=== PATIENT | female | born 2000 | race Caucasian/White ===

== ENCOUNTER 2023-09-15 13:50 | Outpatient (REF) | payer BC, SELFPAY ==
[2023-09-15 14:04] LABS: MANUAL DIFF FLAG NO
[2023-09-15 14:34] LABS: Basophils Absolute Auto 0.1 X10*3/uL (0.0-0.2); Basophils Percent Auto 0.9 % (0-2); Eosinophils Absolute Auto 0.4 X10*3/uL (0.0-0.4); Eosinophils Percent Auto 5.1 % (0-4); Hematocrit 43.5 % (37.0-47.0); Imm Gran Abs Auto 0.03 X10*3/uL (0.00-0.03); Imm Gran Pct Auto 0.4 % (0.0-0.4); Lymphocytes Absolute Auto 1.9 X10*3/uL (1.2-4.9); Lymphocytes Percent Auto 24.1 % (20-40); Mean Corpuscular HGB Conc 32.2 g/dl (31.0-35.0); Mean Corpuscular Hemoglobin 27.9 pg (27.0-33.0); Mean Corpuscular Volume 86.8 fL (80.0-98.0); Mean Platelet Volume 10.2 fL (9.4-12.3); Monocytes Absolute Auto 0.3 X10*3/uL (0.1-1.2); Monocytes Percent Auto 4.2 % (2-11); Neutrophils Percent Auto 65.3 % (45-73); Platelet Count 226 X10*3/uL (160-400); Red Blood Count 5.01 X10*6/uL (4.20-5.50); Red Cell Distribution Width 12.3 % (11.0-16.0); White Blood Count 7.7 X10*3/uL (4.8-10.8)
[2023-09-15 15:11] LABS: UPreg QC Valid YES; Urine Pregnancy NEGATIVE (NEGATIVE)
[2023-09-15 15:17] LABS: Alanine Aminotransferase 17 U/L (0-31); Albumin Level 4.4 g/dL (3.5-5.0); Alkaline Phosphatase 48 U/L (39-117); Anion Gap 10 (12-20); Aspartate Amino Transferase 14 U/L (5-31); Bilirubin Total 0.3 mg/dL (0.0-1.0); Blood Urea Nitrogen 9 mg/dL (9-16); Calcium 9.2 mg/dL (8.4-10.2); Carbon Dioxide 28 mmol/L (22-29); Chloride 106 mmol/L (96-108); Estimated Glomerular Filt Rate > 60; Glucose Random 113 mg/dL (60-115); Potassium 3.6 mmol/L (3.3-5.1); Sodium 140 mmol/L (135-145)
[2023-09-15 15:30] LABS: Vitamin B12 688 pg/mL (200-900)
[2023-09-15 15:35] LABS: Free T4 (Free Thyroxine) 1.06 ng/dL (0.71-1.85); Vitamin D 25-OH Total 29.2 ng/mL (>30)
--- NOTE | 2023-09-15 18:16 | HO.PS.ADMBH ---
HPI Date of Service: 09/15/23 Chief Complaint: F32.2 Sources of Information: patient interviewed, chart reviewed and crisis/core team assessment reviewed HPI Narrative: Patient is a 23 year old female with a long history of depression who was referred to [facility] by her therapist Sydnie Petersen. This is her first PHP admission, although was once referred to [facility] in the past but quit before completing her first day. She reports a history of dropping out of school due to depression and anxiety, and is currently struggling to get to work regularly due to the severity of her depression which is negatively impacting her ability to function. She reports struggling with depression since age 14, and reportedly her depression has been persistent since then aside from some brief periods of recovery in her mood. She reports currently feeling her depression is the worst it has been since high school. There was a period of some month last summer when she was not feeling depressed. She had come off her medication during this time and was able to maintain a euthymic mood for some time before the depression returned. It has been getting steadily worse since . She was started back on Effexor 1.5 months ago but unlike last time she was on it, she is not finding any relief thus far. Past Psychiatric History: No hx of IP hospitalization, PHP or detox admissions Per initial assessment - engaged in group therapy in the past Denies hx of suicide attempts Hx of SIB No hx of aggression Was diagnosed with ADHD in adolescence Outpatient providers: PCP - Dr. Bertha Padilla ([facility]) Psychiatrist - David Fairbanks MD Therapist - Sydnie Goodrich [facility], since early 2022 Previous trials: Prozac, Zoloft, Wellbutrin (none were effective, denies any adverse effects) also trazodone, and hydroxyzine were only modestly effective. Ritalin, Adderall, had been on venlafaxine in the past (as high as 37.5 mg) CURRENT MEDICATIONS: venlafaxine 25 mg (1/2 tablet) venlafaxine 37.5 mg (1/2 tablet) [facility] Medical History (Updated 09/16/23 @ 06:53 by Gina Lin MD) No known health problems Narrative: Healthy No chronic conditions or significant illnesses No surgical history No hx of seizures No hx of concussions or TBI Nulligravid G0 recently underwent STD testing in 2022, no findings Not currently sexually active LMP: almost 1 month ago Ht: 5'3 Wt: 108 lbs ALL: NKDA Narrative: None Family History: depression, anxiety Social History: Shares an apartment with a roommate Currently employed dropped out of in 11th grade due to depression, obtained a GED Substance History: Alcohol use: occasional use, socially, 0-2 x/week, in moderation Cannabis use: regularly, daily basis for years Denies other substance use Trauma History: Denies Diagnostics Labs 09/15/23 14:03 09/15/23 14:03 Labs: Laboratory Results - last 48 hr 09/15/23 09/15/23 14:03 14:05 WBC 7.7 RBC 5.01 Hgb 14.0 Hct 43.5 MCV 86.8 MCH 27.9 MCHC 32.2 RDW 12.3 Plt Count 226 MPV 10.2 Immature Gran % (Auto) 0.4 Neut % (Auto) 65.3 Lymph % (Auto) 24.1 Ellis % (Auto) 4.2 Eos % (Auto) 5.1 H Baso % (Auto) 0.9 Lymph # (Auto) 1.9 Ellis # (Auto) 0.3 Eos # (Auto) 0.4 Baso # (Auto) 0.1 Abs Immat Gran (auto) 0.03 Absolute Neuts (auto) 5.0 Absolute Nucleated RBC 0.000 Nucleated RBC % (auto) 0.0 Sodium 140 Potassium 3.6 Chloride 106 Carbon Dioxide 28 Anion Gap 10 L BUN 9 Creatinine 0.83 Estim Creat Clear Calc Not Reportable Estimated GFR > 60 Random Glucose 113 Calcium 9.2 Total Bilirubin 0.3 AST 14 ALT 17 Alkaline Phosphatase 48 Total Protein 7.0 Albumin 4.4 Vitamin B12 688 25-OH Vitamin D Total 29.2 L TSH 0.90 Free T4 1.06 Urine Test NEGATIVE Meds/Allergies Meds Home Medications Medication Instructions Recorded Confirmed Type venlafaxine 25 mg tablet 12.5 mg PO DAILY 09/15/23 09/15/23 History venlafaxine 37.5 mg tablet 18.75 mg PO BEDTIME 09/15/23 09/15/23 History Allergies Allergies Allergy/AdvReac Type Severity Reaction Status Date / Time No Known Allergies Allergy Verified 09/15/23 10:47 Mental Status Exam Mental Status Exam Narrative: Alert, oriented, in no acute distress. Calm, cooperative, engaged. No psychomotor agitation or neurovegetative retardation. Eye contact maintained. Mood depressed, affect constricted. Speech normal. Thought process linear, coherent. Thought content related to stressors, transient hopelessness, denies current SI or HI, although admits recently experienced some passive SI. No paranoia or delusional content elicited. No evidence of psychosis. Insight and judgment impaired. Assessment & Plan Assessment & Plan (1) Major depressive disorder, recurrent severe without psychotic features: Status: Acute Code(s): F33.2 - Major depressive disorder, recurrent severe without psychotic features (2) Other specified anxiety disorders: Status: Acute Code(s): F41.8 - Other specified anxiety disorders (3) ADHD (attention deficit hyperactivity disorder): Status: Acute Qualifiers: Attention deficit-hyperactivity disorder type: predominantly inattentive Qualified Code(s): F90.0 - Attention-deficit hyperactivity disorder, predominantly inattentive type Code(s): F90.9 - Attention-deficit hyperactivity disorder, unspecified type (4) Cannabis abuse: Status: Acute Code(s): F12.10 - Cannabis abuse, uncomplicated Plan Admit to PHP increase dose of venlafaxine to 37.5 mg ER qd (from 31.25 mg qd) will hold IR dose engaged patient in discussion regarding ongoing substance use order routine lab work [facility] reviewed continue to monitor as per protocol Patient educated on: diagnosis, medication risk/benefits and substance abuse Informed Consent: understands Reason for continued partial hosp. stay Substantial Risk for: inability to function, rapid decompensation and med/psych decompensation Certification I certify that partial hospital treatment is medically necessary due to the symptoms and problems resulting from the patient's mental illness and the failure to treat the patient at the partial hospital level of care would likely result in the patient requiring inpatient psychiatric care which could not be prevented at a less intensive level of care. Time Spent With Patient Time: Total time managing care of this patient today __60__ minutes.
== END 2023-09-15 13:51 | disposition home or self-care (01) ==
LOC: HO.LAB 13:50
PROVIDERS: PCP Family Medicine; Visit Provider Psychiatry & Neurology Psychiatry
DX: F33.2 Major depressive disorder, recurrent severe without psychotic features (principal); F41.8 Other specified anxiety disorders; F90.0 Attention-deficit hyperactivity disorder, predominantly inattentive type; F12.10 Cannabis abuse, uncomplicated
CPT/HCPCS: 36415; 80053; 81025; 82306; 82607; 84439; 84443; 85025

== ENCOUNTER → 2023-09-15 13:50 | Outpatient (BNV) | payer BC, SELFPAY | PROVIDERS: PCP Family Medicine; Visit Provider Psychiatry & Neurology Psychiatry | DX: F33.2 Major depressive disorder, recurrent severe without psychotic features (principal); F41.8 Other specified anxiety disorders; F90.0 Attention-deficit hyperactivity disorder, predominantly inattentive type; F12.10 Cannabis abuse, uncomplicated | CPT/HCPCS: 90792 ==

== ENCOUNTER → 2023-09-23 11:30 | Outpatient (BNV) | payer BC, SELFPAY | PROVIDERS: Visit Provider Psychiatry & Neurology Psychiatry | DX: F33.2 Major depressive disorder, recurrent severe without psychotic features (principal); F12.10 Cannabis abuse, uncomplicated; F90.0 Attention-deficit hyperactivity disorder, predominantly inattentive type | CPT/HCPCS: 90832; 99213; 99499 ==

== ENCOUNTER 2023-09-30 10:00 | Outpatient (RCR) | payer BC, SELFPAY ==
[2023-09-15 10:49] VITALS: BP 99/83; PULSE 80; TEMP 36.8
[2023-09-15 10:52] VITALS: BMI 19.1
--- NOTE | 2023-09-15 11:39 | PC.ADMIT ---
Patient is a 23 year old female who was referred to [facility] by her therapist d/t increased depression and anxiety sxs. Patient also reports she self harmed by cutting her upper R leg superficially last week. Reports she has not self harmed prior to this in a few years. Feeling overwhelmed by her job. Stated she has been calling out of work d/t depressive and anxious symptoms. She lives with a roommate and reports she is not having any financial issues at this time. Patient is using Cannabis daily throughout the day and is looking to cut down her use. She was given written and verbal education about Marijuana use disorder. Patient is alert and oriented x4. Calm and cooperative. Denied SI currently. Patient stated, In the past few weeks yes feels more intrusive then a real belief or want. Patient denied any plan or intent. Reports she was having some passive thoughts. Medications reconciled with patient and patient's pharmacy. She reports she is currently taking medications as prescribed.
--- NOTE | 2023-09-15 17:16 | HO.PHP ---
Pt's case has been opened and reviewed in team.
--- NOTE | 2023-09-23 21:51 | HO.PHPPROGNO ---
Subjective Subjective Date of Service: 09/23/23 Reason For Visit: ADD,ADHD Interim History: Patient seen for follow-up. No major changes, still feels very depressed. She did not tolerate the increase in venlafaxine which caused her to feel nauseous and overstimulated. She returned to the half dose, which is where she was on admission, and symptoms resolved. She has had previous trials of Prozac and Zoloft and Wellbutrin without any improvement. Only Effexor had been helpful in the past, but this time is not helping at the dose it did before, and clearly she was unable to tolerate the bump up by 12.5 mg. She is agreeable to switching to a different antidepressant, and given her history of benefitting from an SNRI, we will trial duloxetine. SHe denies any suicidal ideation last time was on admission. Last time she engaged in SIB was weeks ago. She reports plans for the weekend - meeting up with a friend and seeing a show. She complains of feeling less focused and motivated. It's been hard to stay engaged with things. Still endorsing low energy and anhedonia. Sleep and appetite are intact. Medication Compliance: Yes Side effects from medications: No Attending Groups: Yes Review of Systems Acute medical concerns: No Mental Status Exam Mental Status Exam Narrative: Alert, oriented, in no acute distress. Calm, cooperative, engaged. No psychomotor agitation or neurovegetative retardation. Eye contact maintained. Mood anxious, depressed, affect variable.. Speech normal. Thought process linear, coherent. Thought content related to stressors, denies hopelessness,SI or HI. No paranoia or delusional content elicited. No evidence of psychosis. Insight and judgment impaired. Diagnostics Vital Signs (24Hr): BMI result Body Mass Index 19.1 Assessment & Plan Assessment & Plan (1) Major depressive disorder, recurrent severe without psychotic features: Status: Acute Code(s): F33.2 - Major depressive disorder, recurrent severe without psychotic features (2) Other specified anxiety disorders: Status: Acute Code(s): F41.8 - Other specified anxiety disorders (3) ADHD (attention deficit hyperactivity disorder): Qualifiers: Attention deficit-hyperactivity disorder type: predominantly inattentive Qualified Code(s): F90.0 - Attention-deficit hyperactivity disorder, predominantly inattentive type Status: Acute Code(s): F90.9 - Attention-deficit hyperactivity disorder, unspecified type (4) Cannabis abuse: Status: Acute Code(s): F12.10 - Cannabis abuse, uncomplicated Plan start duloxetine 30 mg qhs, plan to titrate to BID dosing next week if tolerated continue venflaxine 18.75 qd and will taper off when increasing duloxetine to BID lab work reviewed - borderline low vitamin D level, encouraged to take [id number] IU to bolster levels nearer to 50, otherwise lab work unremarkable will continue to monitor Patient educated on: diagnosis, medication risk/benefits and substance abuse Informed Consent: understands Reason for contiued partial hosp. stay Substantial Risk for: inability to function, rapid decompensation and med/psych decompensation Certification I certify that partial hospital treatment is medically necessary due to the symptoms and problems resulting from the patient's mental illness and the failure to treat the patient at the partial hospital level of care would likely result in the patient requiring inpatient psychiatric care which could not be prevented at a less intensive level of care. Total time managing care of this patient today __30__ minutes. Discharge Plan Discharge Attending provider: Gina Lin Medications: New duloxetine 30 mg capsule,delayed release(DR/EC) 30 mg PO BID Qty: 30 0RF Rx Instructions: start at one capsule po daily for 4 days, then increase to one capsule po BID No Action venlafaxine 25 mg tablet 12.5 mg PO DAILY Rx Instructions: Patient reports she takes a 1/2 tab daily. venlafaxine 37.5 mg tablet 18.75 mg PO BEDTIME Patient Comments: Patient reports she takes a 1/2 tab at bedtime. Stated she started using her old prescription.
--- NOTE | 2023-09-27 22:51 | P.PNPSP_ITS ---
Subjective Subjective Date of Service: 09/27/23 Reason For Visit: ADD,ADHD Interim History: Patient seen for follow-up by request. She reports that she has not been able to fill the medication the duloxetine that was sent last week, apparently there is a hold on the medication. She otherwise reports no major change form last week. Still depressed, denies any SI. Says sleep, appetite are intact. We are anticipating discharge at the end of the week. She says she doesn't feel ready at the moment, but says she will see how she feels on Tuesday. Reached out to [facility] and spoke with pharmacist who clarified prescribing issue. Insurance will not cover BID dosing of duloxetine. Will only fill #30/month. I have sent over script for 60 mg QHS #30. Medication Compliance: Yes Side effects from medications: No Attending Groups: Yes Review of Systems Acute medical concerns: No Mental Status Exam Mental Status Exam Narrative: Alert, oriented, in no acute distress. Calm, cooperative, engaged. Appears slow, but but no latency or delay. No psychomotor agitation or neurovegetative retardation. Eye contact maintained. Mood depressed, affect variable.. Speech normal. Thought process linear, coherent. Thought content related to stressors, denies hopelessness,SI or HI. No paranoia or delusional content elicited. No evidence of psychosis. Insight and judgment impaired. Diagnostics Vital Signs (24Hr): BMI result Body Mass Index 19.1 Assessment & Plan Patient educated on: diagnosis, medication risk/benefits and substance abuse Informed Consent: understands Reason for contiued partial hosp. stay Substantial Risk for: inability to function and med/psych decompensation Certification I certify that partial hospital treatment is medically necessary due to the symptoms and problems resulting from the patient's mental illness and the failure to treat the patient at the partial hospital level of care would likely result in the patient requiring inpatient psychiatric care which could not be prevented at a less intensive level of care. Total time managing care of this patient today __30__ minutes. Discharge Plan Discharge Attending provider: Gina Lin Medications: New duloxetine 60 mg capsule,delayed release(DR/EC) 60 mg PO BEDTIME 30 Days Qty: 30 0RF Rx Instructions: -dose increase- Discontinued venlafaxine 25 mg tablet 12.5 mg PO DAILY Rx Instructions: Patient reports she takes a 1/2 tab daily. venlafaxine 37.5 mg tablet 18.75 mg PO BEDTIME Patient Comments: Patient reports she takes a 1/2 tab at bedtime. Stated she started using her old prescription. Stand Alone Forms: Patient Portal Discharge page Patient Education: Depression (DC)
--- NOTE | 2023-09-30 23:55 | P.PNPSP_ITS ---
Subjective Subjective Date of Service: 09/30/23 Reason For Visit: ADD,ADHD Interim History: Patient was seen for follow-up, she has completed the program and anticipates discharge at the end of the day today. She reports tolerating increase of duloxetine 30 mg to BID dosing. Denies any adverse effects. Reports mood is still depressed, low energy, low motivation, some anhedonia, but is able to spend time with friends and enjoys doing that. She denies any hopelessness or SI, and says that has not been a problem since she was in high school. She reports sleep and appetite are stable. No changes in her health. She was offered the opportunity to extend her stay in the program, however she declines and says she feels she has gotten as much as she can from her time here at this point. She had rescheduled her appointment with Dr. Fairbanks today but has been told that he will be away and that her next appointment with him is November 08. She was told to try calling again in a couple weeks to see if she can be fit in earlier. In the meantime, I will send her refills to her pharmacy and should she need refills before her next psych provider appointment, she could call [facility] and request a refill. We had discussed further titration of the duloxetine in shy weeks to come if needed, given she is currently on the lowest therapeutic dose of duloxetine 30 mg BID. We also discussed other treatment options including augmentation with Li or LT4, or switching to a TCA vs mood stabilizer (Lamictal) if she fails duloxetine or has only a limited response. (To date she has had 4 failed antidepressant trials - fluoxetine, sertraline, buproprion, venlafaxine). She was given referral info for esketamine treatment at the [facility] in [place], [place]. She was also given information about [place] [facility] [place] Medication Compliance: Yes Side effects from medications: No Attending Groups: Yes Review of Systems Acute medical concerns: No Mental Status Exam Mental Status Exam Narrative: Alert, oriented, in no acute distress. Calm, cooperative, engaged. No psychomotor agitation or neurovegetative retardation. Eye contact maintained. Mood depressed but stable, affect constricted. Speech low volume, normal rate, low prosody. Thought process linear, coherent. Thought content related to stressors, +future-orientation, some +helplessness, denies hopelessness or SI. No AI or HI. No paranoia or delusional content elicited. No evidence of psychosis. Insight fair but adequate, and judgment fair-good. Diagnostics Vital Signs (24Hr): BMI result Body Mass Index 19.1 Assessment & Plan Assessment & Plan (1) Major depressive disorder, recurrent severe without psychotic features: Status: Acute Code(s): F33.2 - Major depressive disorder, recurrent severe without psychotic features (2) Cannabis abuse: Status: Acute Code(s): F12.10 - Cannabis abuse, uncomplicated (3) ADHD (attention deficit hyperactivity disorder): Qualifiers: Attention deficit-hyperactivity disorder type: predominantly inattentive Qualified Code(s): F90.0 - Attention-deficit hyperactivity disorder, predominantly inattentive type Status: Acute Code(s): F90.9 - Attention-deficit hyperactivity disorder, unspecified type Plan Discharge from [facility] continue on current medication regime defer further medication management to outpatient provider Dr. David Fairbanks who is currently on vacation patient may call program in the meantime if she needs refills information given re: alternative treatment modalities for depression Patient educated on: diagnosis and medication risk/benefits Informed Consent: understands Reason for contiued partial hosp. stay Substantial Risk for: stable for discharge Certification I certify that partial hospital treatment is medically necessary due to the symptoms and problems resulting from the patient's mental illness and the failure to treat the patient at the partial hospital level of care would likely result in the patient requiring inpatient psychiatric care which could not be prevented at a less intensive level of care. Total time managing care of this patient today __30__ minutes. Discharge Plan Discharge Attending provider: Gina Lin Medications: New duloxetine 60 mg capsule,delayed release(DR/EC) 60 mg PO BEDTIME 30 Days Qty: 30 0RF Rx Instructions: -dose increase- Discontinued venlafaxine 25 mg tablet 12.5 mg PO DAILY Rx Instructions: Patient reports she takes a 1/2 tab daily. venlafaxine 37.5 mg tablet 18.75 mg PO BEDTIME Patient Comments: Patient reports she takes a 1/2 tab at bedtime. Stated she started using her old prescription. Stand Alone Forms: Patient Portal Discharge page Patient Education: Depression (DC)
--- NOTE | 2023-10-20 22:26 | PM.EVENT ---
Event Note Date of Service: 10/20/23 Event Note: Patient called to check in regarding medication update. She feels things are going okay with the duloxetine. She has been at 60 mg qd. I feel like I've been doing better, more functional...I dont feel like I'm totally there yet . SHe denies any hopelessness or SI in the interim, although except one reported instance. She reports that there was a day where she briefly was having intrusive SI, which was weird . She says she does not usually have these thoughts. She could not identify any precipitants. It spontaneously resolved after a few hours. Has not reoccurred. She denies any adverse effects on this dose. She is also restarted her Ritalin 5 mg as needed which has been helpful. She continues to have issues with sleep that, falls asleep but trouble staying asleep, which she says does not appear to be affected by the days she takes Ritalin. SHe has taken trazodone in the past which was helpful. She is agreeable to increasing the dose of duloxetine to 90 mg/day, to further target depressive symptoms. She is aware to monitor for any suicidal or intrusive thoughts, agitation or other concerning issues and she readily agrees to reach out for any concerns. She will reach out again for a check up on 10/27. She has a psych provider appointment on 11/07. [ Time Spent With Patient Time: Total time managing care of this patient today _15___ minutes.
--- NOTE | 2023-11-02 18:39 | P.EN_ITS ---
Event Note Date of Service: 11/02/23 Event Note: I was given a message from front office coordinator saying that patient called reporting that she is experiencing worsening depression with the higher dose (60 mg) of duloxetine and asked if she can return back to original dose (30 mg) and denying that she is having any SI and reports that she has an upcoming med provider appointment on 11/14. I was unable to reach her this evening and left a VM message letting her know she can return to the lower dose of 30 mg (I reviewed her medications and she should still have about 2 weeks worth of 30 mg capsules. I also mentioned TMS, that we had previously discussed and patient had refused a referral at the time, but says it might be something she would be interested in the future. I let her know that this offer still remains and that she is free to call me back to discuss referral, otherwise I plan to reach her by the end of t he week to check in. Time Spent With Patient Time: Total time managing care of this patient today _10___ minutes.
== END 2023-09-30 23:59 | disposition home or self-care (01) ==
LOC: HO.PHPA 10:00
PROVIDERS: Visit Provider Psychiatry & Neurology Psychiatry
DX: F33.2 Major depressive disorder, recurrent severe without psychotic features (principal); F41.8 Other specified anxiety disorders; F90.0 Attention-deficit hyperactivity disorder, predominantly inattentive type; F12.10 Cannabis abuse, uncomplicated; Z79.899 Other long term (current) drug therapy
CPT/HCPCS: 90791; 90853